=== PATIENT | male | born 1985 | race Caucasian/White ===

== ENCOUNTER 2016-09-28 03:23 | Emergency (ER) | payer SELFPAY ==
[~2016-09-28] VITALS: Ht 177.8 cm; Wt 71.7 kg
[2016-09-28 03:18] VITALS: BP 136/90
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
[2016-09-28] MEDS ORDERED: NKM (03:35)
[2016-09-28] MEDS: TdaP Vaccine 0.5ml Syr IM ONE ×2 (04:35→04:39)
[2016-09-28] MEDS ORDERED: HYDROCODON-ACE1 EA15 ORAL (04:41)
[2016-09-28 04:47] VITALS: BP 128/90
[2016-09-28 04:48] VITALS: BP 128/90
--- NOTE | 2016-09-28 09:55 | Diagnostic Imaging Report ---
Indication: Head trauma Technique: Contiguous 5 mm thick transaxial imaging of the head obtained in a Siemens Sensation [address] scanner. Soft tissue and bone windows generated. Total Dose length Product (DLP): [address] Dose Index Volume (CTDIvol): 70.38 mGy Comparison: none Findings: The size and configuration of the cortical sulci, basal cisterns, and ventricles are within normal limits for age. There is no mass effect, midline shift, or edema identified. There is no evidence of acute hemorrhage or abnormal intra-axial or extra-axial fluid collections. There is acute fracture of the nasal bone. Impression: No mass effect, edema or acute bleed. Acute nasal bone fracture. The CT scanner at [facility] is accredited by the [employer] and the scans are performed using protocols designed to limit radiation exposure to as low as reasonably achievable to attain images of sufficient resolution adequate for diagnostic evaluation.
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
== END 2016-09-28 04:48 | disposition home or self-care (01) ==
LOC: EDBD 03:23 → EMR 03:45
DX: S62.339A Displaced fracture of neck of unspecified metacarpal bone, initial encounter for closed fracture (principal); S09.90XA Unspecified injury of head, initial encounter; S01.01XA Laceration without foreign body of scalp, initial encounter; S01.21XA Laceration without foreign body of nose, initial encounter; S01.112A Laceration without foreign body of left eyelid and periocular area, initial encounter; S02.2XXA Fracture of nasal bones, initial encounter for closed fracture; Y04.0XXA Assault by unarmed brawl or fight, initial encounter; Y92.9 Unspecified place or not applicable; Y99.8 Other external cause status
CPT/HCPCS: 29125; 70450; 90471; 90715